=== PATIENT | male | born 1960 | race Caucasian/White ===

== ENCOUNTER 2017-09-28 06:26 | Day surgery (SDC) | payer OTHER ==
[2017-09-25 13:08] VITALS: BMI 32.1
[2017-09-28] MEDS ORDERED: ROPIVACAINE HCL 0.5% 30ML VIAL ONE (07:04)
[2017-09-28] MEDS ORDERED: MIDAZOLAM HCL 2 MG/2 ML SINGLE DOSE VIAL ONE ×2 (07:04→08:03)
[2017-09-28] MEDS ORDERED: DEXAMETHASONE SOD PHOSPHATE/PF 10 MG/ML SDV ONE (07:04)
[2017-09-28] MEDS ORDERED: ROCURONIUM BROMIDE 50 MG/5 ML VIAL ONE (07:07)
[2017-09-28] MEDS ORDERED: LIDOCAINE HCL/PF 2% SDV 5ML VIAL ONE (07:07)
[2017-09-28] MEDS ORDERED: ONDANSETRON 4 MG/2 ML VIAL ONE (07:07)
[2017-09-28] MEDS ORDERED: SUCCINYLCHOLINE CHLORIDE 200 MG/10 ML VIAL ONE (07:07)
[2017-09-28] MEDS ORDERED: PROPOFOL 20 ML ONE (07:07)
[2017-09-28] MEDS ORDERED: DEXAMETHASONE SOD PHOSPHATE 4 MG/1 ML VIAL ONE (07:07)
[2017-09-28] MEDS ORDERED: EPINEPHrine 1:1,000 1 MG/1 ML - 30ML VIAL (INJECTION) ONE (07:10)
[2017-09-28] MEDS ORDERED: ceFAZolin SODIUM 1 GM VIAL ONE (07:37)
[2017-09-28] MEDS ORDERED: oxyCODONE HCL 5 MG TABLET ONE (09:11)
[2017-09-28 10:23] VITALS: TEMP 97.6
[2017-09-28 10:27] VITALS: BP 132/73; PULSE 90
[2017-09-28] MEDS ORDERED: ONDANSETRON 4 MG/2 ML VIAL IVPUSH PRN (13:02)
[2017-09-28] MEDS ORDERED: oxyCODONE HCL 5 MG TABLET PO PRN ×2 (13:02)
[2017-09-28] MEDS ORDERED: LACTATED RINGERS SOLUTION 1,000 ML IV SCH (13:15)
--- NOTE | 2017-10-01 15:24 | PATH ---
Surgical Pathology Report Patient Name: MARIELOS SHARP [facility]. Rec. #: [id number] /Age/Gender: 1960 (Age: 57) / M Account: [id number] Location: [facility] Taken: 09/28/2017 Received: 09/28/2017 Reported: 10/01/2017 Physicians: Scotty Dugan M.D. Specimen(s) Received RIGHT SHOULDER SHAVINGS Clinical History Right shoulder internal derangement Final Diagnosis SHOULDER, RIGHT, ARTHROSCOPIC SHAVINGS: FIBROSYNOVIAL TISSUE, SCANT CARTILAGE AND SKELETAL MUSCLE. Electronically Signed Silvia Issa M.D. Gross Description Received in formalin, labeled "right shoulder shavings," is a 4.4 x 3.8 x 0.4 cm. aggregate of villalobos-yellow soft tissue fragments. A account service representative portion is submitted in one cassette. /09/28/201709/28/2017
--- NOTE | 2017-10-02 09:40 | OP ---
DATE OF OPERATION: 09/28/2017 LOCATION: [facility]. SURGEON: Dilip Sanon MD BUSINESS APPLICATIONS ANALYST: MICHEL Neil PREOPERATIVE DIAGNOSES: 1. Right shoulder adhesive capsulitis. 2. Right shoulder impingement syndrome. 3. Right shoulder acromioclavicular joint disease. 4. Right shoulder superior labral tear, anterior/posterior synovitis. POSTOPERATIVE DIAGNOSES: 1. Right shoulder adhesive capsulitis. 2. Right shoulder impingement syndrome. 3. Right shoulder acromioclavicular joint disease. 4. Right shoulder superior labral tear, anterior/posterior synovitis. PROCEDURE: 1. Right shoulder arthroscopy with lysis of adhesions. CPT code 38037. 2. Right shoulder arthroscopy with subacromial decompression. CPT code 53123. 3. Right shoulder arthroscopy with resection of distal clavicle and acromioclavicular joint. CPT code 42107. 4. Right shoulder arthroscopy with debridement. CPT code 25421. FINDINGS: 1. Glenohumeral synovitis. 2. Anterior grade 2 cartilage injury of the glenohumerus. 3. Partial biceps tear, 10%. 4. Partial rotator cuff tear, 25%. 5. Adhesions, glenohumeral joint. 6. Thickened scar tissue and adhesions, subacromial space. 7. Type 2 acromion with partial type 3 curvature, anterior acromion. 8. Inferior spurs of clavicle with acromioclavicular degenerative joint disease. PROCEDURE: Informed consent was obtained. The patient was taken to the operating room, where the upper extremity was prepped and draped in a sterile fashion. A scalene block was performed by Anesthesia. Manipulation under anesthesia was allowed for full range of motion. Using standard arthroscopic technique, a posterior incision portal was made, which allowed for introduction of a camera into the glenohumeral joint. Under direct visualization, an anterior incision and portal was made. Extensive and thickened synovitis was debrided. Fraying of the labrum was debrided and the superior labrum from anterior to posterior was identified with all loose areas debrided. Any labral tears were taken to a stable rim including identified SLAP lesions. All loose cartilage was debrided. The rotator cuff was identified and evaluated, as were the subacromial and bursal surfaces. The posterior incision portal was redirected to the subacromial space, where a lateral incision and portal was made. Excessive and thickened synovium was removed throughout the subacromial space including the anterior scar tissue, posterior bursa and lateral bursa. The type 2 acromion was converted to a flattened type 1, removing the anterior and lateral spurring. An accessory portal was made at the acromioclavicular joint, removing the inferior spur of the distal clavicle at the acromioclavicular joint allowing for a distal clavicle partial resection. Please note that 1 cm of undersurface of clavicle was removed extending into the intra articular portion and through an accessory portal. The shoulder was once again reexamined and all impingement was removed. The shoulder was drained. A single suture was placed in all portals and a sterile dressing was placed. The patient was transferred to the recovery room without complication. DILIP SANON M.D. [id number]
== END 2017-09-28 10:15 | disposition home or self-care (01) ==
LOC: FASU 06:26
PROVIDERS: ATTEND Orthopaedic Surgery
PROC: 0RBJ4ZZ Excision of Right Shoulder Joint, Percutaneous Endoscopic Approach (ICD-10-PCS; 2017-09-28)
PROC: 0RNJ4ZZ Release Right Shoulder Joint, Percutaneous Endoscopic Approach (ICD-10-PCS; 2017-09-28)
PROC: 0PB94ZZ Excision of Right Clavicle, Percutaneous Endoscopic Approach (ICD-10-PCS; principal; 2017-09-28 08:00)
DX: M75.41 Impingement syndrome of right shoulder (principal); M75.01 Adhesive capsulitis of right shoulder; M19.011 Primary osteoarthritis, right shoulder; M24.111 Other articular cartilage disorders, right shoulder; M65.811 Other synovitis and tenosynovitis, right shoulder
CPT/HCPCS: 88304-TC

== ENCOUNTER 2019-02-13 06:21 | Inpatient (IN) | payer OTHER ==
[2019-02-13] MEDS ORDERED: CELECOXIB 200 MG CAPSULE PO ONE (06:39)
[2019-02-13] MEDS ORDERED: oxyCODONE HCL 10 MG SUSTAINED ACTING TABLET PO ONE (06:39)
[2019-02-13] MEDS ORDERED: CEFAZOLIN 2 GM in DEXTROSE 5%-WATER - 50 ML IVPB ONE (06:39)
[2019-02-13] MEDS ORDERED: TRANEXAMIC ACID 1000 MG/10 ML VIAL IVPUSH ONE (06:39)
[2019-02-13] MEDS ORDERED: BUPIVICAINE 0.25%/MORPH PF/KETOROLAC - 51ML DISP.SYRINGE IA ONE ×3 (06:39→10:38)
[2019-02-13] MEDS ORDERED: PANTOPRAZOLE 40 MG TABLET (FP) PO ONE (06:40)
[2019-02-13 06:49] VITALS: BMI 34.2
[2019-02-13] MEDS ORDERED: DEXAMETHASONE SOD PHOSPHATE/PF 10 MG/ML SDV ONE (07:09)
[2019-02-13] MEDS ORDERED: MIDAZOLAM HCL 2 MG/2 ML SINGLE DOSE VIAL ONE (07:10)
[2019-02-13] MEDS ORDERED: VANCOMYCIN 1,000 MG VIAL (RESTRICTED TO ID ONLY) ONE (07:13)
[2019-02-13] MEDS ORDERED: ceFAZolin SODIUM 1 GM VIAL ONE ×2 (07:13→07:22)
[2019-02-13] MEDS ORDERED: ONDANSETRON 4 MG/2 ML VIAL ONE (07:22)
[2019-02-13] MEDS ORDERED: SODIUM CHLORIDE 0.9% P/F 10 ML VIAL IJ ONE (07:22)
[2019-02-13] MEDS ORDERED: BUPIVACAINE HCL/PF 0.5% (5MG/ML) 10 ML VIAL ONE (07:22)
[2019-02-13] MEDS ORDERED: DEXMEDETOMIDINE HCL 200 MCG/2 ML IVPB ONE (07:44)
--- NOTE | 2019-02-13 07:45 | HP ---
Admitting History and Physical - Admission Chief Complaint: left hip osteoarthritis x years History of Present Illness: 59 year old male presents in regard to their left hip. Longstanding history of left hip osteoarthritis. Patient complains of pain, limited ROM, difficulty ambulating and difficulty completing ADLs. Patient has failed conservative treatment measures including PO medications, injections, exercise programs and activity modification. At this point, patient wishes to proceed with surgical intervention, a left total hip arthroplasty - MAKOplasty. History Source: Patient - Past Medical History Gastrointestinal: Yes: GERD Musculoskeletal: Yes: Osteoarthritis - Past Surgical History Additional Past Surgical History: See written history & physical. - Smoking History Smoking history: Never smoked Have you smoked in the past 12 months: No - Alcohol/Substance Use Hx Alcohol Use: Yes (OCCASIONALLY) Home Medications - Allergies Allergies/Adverse Reactions: Allergies Allergy/AdvReac Type Severity Reaction Status Date / Time No Known Allergies Allergy Verified 01/28/19 12:45 - Home Medications Home Medications: Ambulatory Orders [place]-3 Fatty Acids/Fish Oil [Fish Oil 1,000 mg Capsule] 2 each PO DAILY Pantoprazole Sodium [Protonix] 40 mg PO DAILY 09/25/17 Red Yeast Rice 600 mg PO DAILY 09/25/17 Diclofenac Sodium [Voltaren -] 75 mg PO BID 01/28/19 Hydrocodone/Acetaminophen [Hydrocodone-Acetamin 5-325 mg] 2 tab PO ASDIR PRN Review of Systems - Review of Systems Musculoskeletal: reports: Decreased ROM (left hip), Joint Pain (left hip) Physical Examination Vital Signs: Vital Signs Temperature 98.4 F 02/13/19 06:44 Pulse Rate 82 02/13/19 06:44 Respiratory Rate 18 02/13/19 06:44 Blood Pressure 132/90 02/13/19 06:44 O2 Sat by Pulse Oximetry (%) Constitutional: Yes: Well Nourished, No Distress Eyes: Yes: Conjunctiva Clear HENT: Yes: Atraumatic, Normocephalic Neck: Yes: Supple Cardiovascular: Yes: Regular Rate and Rhythm Respiratory: Yes: Regular Gastrointestinal: Yes: Soft ...Rectal Exam: Yes: Deferred Musculoskeletal: Yes: Joint Stiffness (left hip), Other (LROM left hip) Assessment/Plan 59 year old male presents in regard to their left hip. Longstanding history of left hip osteoarthritis. Patient complains of pain, limited ROM, difficulty ambulating and difficulty completing ADLs. Patient has failed conservative treatment measures including PO medications, injections, exercise programs and activity modification. At this point, patient wishes to proceed with surgical intervention, a left total hip arthroplasty - MAKOplasty. Pros, cons, risks benefits and alternatives of a left total hip arthroplasty, MAKOplasty were discussed with the patient at length. Patient confirms their understanding and consents to proceed wituh a left total hip arthroplasty, MAKOplasty.
[2019-02-13] MEDS ORDERED: GLYCOPYRROLATE 0.2 MG/1 ML VIAL ONE (08:31)
[2019-02-13] MEDS ORDERED: ePHEDrine SULFATE 50 MG/1 ML AMPULE ONE (08:41)
[2019-02-13] MEDS ORDERED: ONDANSETRON 4 MG/2 ML VIAL IVPUSH PRN ×2 (09:37→11:11)
[2019-02-13] MEDS ORDERED: oxyCODONE HCL 5 MG TABLET PO PRN (09:38)
[2019-02-13] MEDS ORDERED: LACTATED RINGERS SOLUTION 1,000 ML IV SCH ×2 (09:45→11:15)
[2019-02-13] MEDS ORDERED: VANCOMYCIN 1,000 MG VIAL (RESTRICTED TO ID ONLY) IVPB ONE (10:25)
[2019-02-13] MEDS ORDERED: TRANEXAMIC ACID 1000 MG/10 ML VIAL IVPB ONE (10:38)
[2019-02-13] MEDS ORDERED: traMADol HCL 50 MG TABLET ONE (10:59)
[2019-02-13] MEDS ORDERED: ACETAMINOPHEN INJECTION 100 ML IVPB ONE (10:59)
[2019-02-13] MEDS ORDERED: KETOROLAC TROMETHAMINE 30 MG/1 ML VIAL ONE (10:59)
[2019-02-13] MEDS ORDERED: MAG HYDROX/AL HYDROX/SIMETH 30 ML UNIT-DOSE CUP PO PRN (11:11)
[2019-02-13] MEDS ORDERED: MAGNESIUM HYDROX 2400MG/30ML ORAL SUSPENSION 30 ML CUP PO PRN (11:11)
--- NOTE | 2019-02-13 11:11 | OP ---
Operative Note - Note: Operative Date: 02/13/19 Pre-Operative Diagnosis: Left hip OA Operation: Left RENATE SHARIF Post-Operative Diagnosis: Same as Pre-op Surgeon: Juan Luis Snell Snowboard Designer: Brooke Headley Anesthesia: Spinal Estimated Blood Loss (mls): 200
[2019-02-13] MEDS: ACETAMINOPHEN 1000 MG/100 ML VIAL (NON FORMULARY) IVPB ONE ×2 (11:30→13:27)
[2019-02-13] MEDS: KETOROLAC TROMETHAMINE 30 MG/1 ML VIAL IVPUSH SCH ×4 (11:46→23:32)
[2019-02-13] MEDS: traMADol HCL 50 MG TABLET PO SCH ×3 (11:47→23:32)
[2019-02-13] MEDS ORDERED: TRANEXAMIC ACID 1000 MG/10 ML VIAL ONE (12:08)
[2019-02-13] MEDS: oxyCODONE HCL 10 MG SUSTAINED ACTING TABLET PO SCH ×2 (13:27→22:24)
[2019-02-13] MEDS: oxyCODONE HCL 5 MG TABLET PO PRN (15:19)
--- NOTE | 2019-02-13 16:02 | SPEC ---
DATE OF OPERATION: 02/13/2019 PREOPERATIVE DIAGNOSIS: Left hip osteoarthritis. POSTOPERATIVE DIAGNOSIS: Left hip osteoarthritis. PROCEDURE: Left total hip replacement with MAKOplasty robotic navigation. ATTENDING: Penny Rios MD PAYABLE PROCESSOR: MICHEL Costa ANESTHESIA: Spinal plus sedation. ESTIMATED BLOOD LOSS: 200 mL. COMPLICATIONS: None. DISPOSITION: The patient was taken to the PACU in stable condition. IMPLANTS USED: Hernandez Accolade II size 6 femoral component, Hernandez Trident II 52-mm acetabular component with 25 and 25-mm acetabular screws, MDM bipolar head ball and liner with inner ceramic +4-mm offset head ball. INDICATIONS: This is a 59-year-old male who presented to the office complaining of severe left hip pain. He was seen and examined by Dr. Rios, diagnosed with severe left hip osteoarthritis. The patient was initially treated conservatively with injections, medications, and physical therapy but continued to have severe pain and ambulatory dysfunction. He was, therefore, indicated for a left total hip replacement. The risks, benefits, and alternatives to the procedure were explained to the patient in great detail, and he elected to proceed with the procedure. DESCRIPTION OF PROCEDURE: On the day of surgery, the patient was taken to the operating room and placed on the OR table. Spinal anesthesia was administered by the anesthesiologist. The patient was then positioned in the lateral decubitus position on the table and all bony prominences were padded. An axillary roll was placed. The operative hip was then prepped and draped in the usual sterile fashion and intravenous antibiotics were given for infection prophylaxis. A surgical time-out was then performed with the team, and the patients identity, procedure, side, availability of implants, and the administration of antibiotics were confirmed. An approximately 15-cm longitudinal incision was made through the skin centered on the greater trochanter of the hip. This dissection was carried down through the subcutaneous tissues to the deep fascia. This fascia was then incised and a Cobra was placed around the inferior femoral neck. Electrocautery was used to reflect the anterior 40% of the gluteus medius and minimus starting at the musculotendinous junction and leaving a cuff for closure. This was reflected to reveal the capsule of the hip joint. An anterior capsulectomy was performed and the femoral head and neck were visualized. Grade 4 changes were noted diffusely throughout the joint. At this point, three small stab incisions were made superior to the main incision along the iliac crest. Three self-drilling Steinmann pins were then placed and the [employer] pelvic array was attached. Reference points on the limb were then entered into the robotic device and the limb length deficiency, offset, and femoral neck resection level were then calculated by the software. The hip was then dislocated with traction and external rotation. An oscillating saw was used to make the femoral neck cut at the level previously templated, and the femoral head was removed. Attention was then turned to the acetabulum. Retractors were then placed around the acetabulum and the labrum was removed. An acetabular checkpoint pin and the [employer] software were used to register the contours of the acetabulum. The acetabulum was then reamed in a single stage to the preoperatively templated size using the [employer] robotic arm. The appropriately sized cup was then impacted and had solid fixation as well as the preset inclination and version of 40 and 20 degrees, respectively. A polyethylene liner was then placed in the cup. Attention was then turned back to the femur, which was externally rotated for improved visualization. A femoral neck elevator was used to present the femoral neck cut, a box osteotome was used to enter the femoral canal, and a canal finder was used to go down the femoral shaft. The Fernando broaches were used sequentially until the optimal scratch fit was achieved. This correlated with the preoperatively templated size. From here, several different offset head and neck configurations were tested until excellent stability and length were obtained. These measurements were quantified using the [employer] software. All trial components were then removed, the femur was copiously irrigated, and the final components were placed. After final implants were placed, a Betadine soak was performed for 3 minutes. Following this, the wound was thoroughly irrigated with normal saline via pulsatile lavage, and wound closure was begun. Leg length and stability were checked again and found to be excellent. Irrigation was performed again. Wound closure was started by repairing the abductor muscles with a no. 2 FiberWire stitch in a Krackow configuration passed through bone tunnels in the greater trochanter and tied over a bony bridge. This repair was then reinforced with a 0 V-Loc 180 barbed suture. Next, no. 1 Polysorb and 0 V-Loc 180 were used to close the fascia. The deep subcutaneous tissue was closed with no. 1 Polysorb sutures, and 2-0 Polysorb was used for the superficial subcutaneous tissue. The skin was closed using both 3-0 V-Loc 90 suture in a running subcuticular fashion and SwiftSet skin adhesive. The Fernando array and pins were removed from the iliac crest and the stab incision sites were irrigated and closed with 4-0 Polysorb sutures and SwiftSet skin adhesive. Once this was completed, a sterile dressing was applied. The patient was then awakened and taken to the PACU in stable condition. PENNY RIOS M.D. [id number]
[2019-02-13] MEDS: CEFAZOLIN 2 GM/D5W 2 GM/50 ML ML IVPB SCH (17:12)
[2019-02-13] MEDS: ACETAMINOPHEN 325 MG TABLET (FP) PO SCH ×2 (17:12→23:32)
[2019-02-13] MEDS ORDERED: DEXAMETHASONE SOD PHOSPHATE 10 MG/1 ML VIAL IVPB ONE (20:00)
[2019-02-13] MEDS: CELECOXIB 200 MG CAPSULE PO SCH (22:15)
[2019-02-13] MEDS: SENNOSIDES/DOCUSATE COMBO (SENNA PLUS) TABLET (UD) PO SCH (22:16)
[2019-02-13] MEDS: GABAPENTIN 300 MG CAPSULE (FP) PO SCH (22:25)
[2019-02-13] MEDS: ASCORBIC ACID 500 MG TABLET (FP) PO SCH (22:25)
[2019-02-14] MEDS: CEFAZOLIN 2 GM/D5W 2 GM/50 ML ML IVPB SCH (02:00)
[2019-02-14] MEDS: KETOROLAC TROMETHAMINE 30 MG/1 ML VIAL IVPUSH SCH (05:26)
[2019-02-14] MEDS: ACETAMINOPHEN 325 MG TABLET (FP) PO SCH ×3 (05:28→18:02)
[2019-02-14] MEDS: traMADol HCL 50 MG TABLET PO SCH ×3 (05:29→18:04)
[2019-02-14] MEDS: ASPIRIN 325 MG TABLET PO SCH (08:09)
[2019-02-14 08:27] LABS: HEMATOCRIT 37.2 % (35.4-49); HEMOGLOBIN 12.6 GM/dl (11.7-16.9); MCH 31.4 pg (25.7-33.7); MEAN CELL VOLUME 92.3 fl (80-96); MEAN PLT VOLUME 8.2 fl (7.5-11.1); PLATELET COUNT 172 K/MM3 (134-434); RBC 4.03 M/mm3 (4.00-5.60); RDW 12.5 % (11.9-15.9); WHITE BLOOD COUNT 8.7 K/mm3 (4.0-10.8)
[2019-02-14 08:32] LABS: CALCIUM 8.3 mg/dl (8.5-10); CREATININE 0.8 mg/dl (0.55-1.3); POTASSIUM 4.4 mmol/L (3.5-5.1)
[2019-02-14] MEDS: GABAPENTIN 300 MG CAPSULE (FP) PO SCH ×2 (09:51→22:11)
[2019-02-14] MEDS: oxyCODONE HCL 5 MG TABLET PO PRN (09:51)
[2019-02-14] MEDS: ASCORBIC ACID 500 MG TABLET (FP) PO SCH ×2 (09:51→22:11)
[2019-02-14] MEDS: MULTIVITAMINS (DAILY MVI) TABLET (FP) PO SCH (09:51)
[2019-02-14] MEDS: PANTOPRAZOLE 40 MG TABLET (FP) PO SCH (09:51)
[2019-02-14] MEDS: SENNOSIDES/DOCUSATE COMBO (SENNA PLUS) TABLET (UD) PO SCH ×2 (09:52→22:11)
[2019-02-14] MEDS: oxyCODONE HCL 10 MG SUSTAINED ACTING TABLET PO SCH ×2 (09:52→22:11)
[2019-02-14] MEDS: CELECOXIB 200 MG CAPSULE PO SCH ×2 (09:54→22:11)
--- NOTE | 2019-02-14 13:15 | DS ---
Physical Examination Vital Signs: Vital Signs Temperature 97.3 F L 02/14/19 06:00 Pulse Rate 66 02/14/19 06:00 Respiratory Rate 16 02/14/19 08:57 Blood Pressure 113/72 02/14/19 06:00 O2 Sat by Pulse Oximetry (%) 98 02/14/19 08:57 Labs: CBC, BMP 02/14/19 07:05 02/14/19 07:05 Discharge Summary Problems reviewed: Yes Reason For Visit: LEFT HIP OSTEOARTHRITIS Current Active Problems Osteoarthritis of left hip (Acute) Procedures: Principal: left RENATE SHARIF Hospital Course: Admitted for elective surgery. Procedure performed without complications. Pt received postoperative antibiotic prophylaxis and DVT ppx. Ambulated with physical therapy. Stable for discharge home with outpatient followup. Condition: Stable - Instructions Diet, Activity, Other Instructions: Dr Snell - Hip Replacement Instructions Keep the Aquacel dressing on until removed by Dr. Snell in the office - it is antibacterial and waterproof and you can shower with it on. Call the office for a follow-up appointment with Dr. Snell in 10-14 days. Take one Aspirin 325mg daily for 6 weeks to prevent blood clots in your legs. Take one Pantoprazole 40mg daily for 6 weeks to protect against heartburn and ulcers. Take Cephalexin (antibiotic) 3x/day for 10 days to help prevent skin infection. Take Celebrex 200mg twice daily for 30 days to reduce swelling and inflammation. Take a multivitamin, stool softener and extra Vitamin C supplement daily. For pain: *Mild pain (1-3/10): Take 1 Tramadol tablet every 4 hours as needed. Moderate pain (4-6/10): Take 1 Tramadol tablet and 1 Percocet tablet every 4 hours as needed. Severe pain (7-10/10): Take 1 Tramadol tablet and 2 Percocet tablets every 4 hours as needed. Activity: You can put as much weight on the operative leg as you want. For the first 6 weeks, all you need to do is walk around the house, go up/down stairs, and sit down/get up. After 6 weeks when everything is healed (and bone has grown into the implant) you will be sent for more intensive outpatient physical therapy. Always use a walker or cane for balance and to prevent falls. Expect to see swelling / bruising from the operative site all the way down to your toes. Wear the Compression stocking on the operative side during the day to minimize how much swelling there is in your foot/ankle. Don't wear the stocking at night. You don't have to wear the stocking on the other side. Disposition: VNS/HOME HEALTH CARE - Home Medications Comprehensive Discharge Medication List: Ambulatory Orders [place]-3 Fatty Acids/Fish Oil [Fish Oil 1,000 mg Capsule] 2 each PO DAILY Red Yeast Rice 600 mg PO DAILY 09/25/17 Ascorbic Acid [Vitamin C -] 500 mg PO BID tablet 02/14/19 Aspirin [ASA -] 325 mg PO DAILY@0800 tablet 02/14/19 Cephalexin Monohydrate [Keflex -] 500 mg PO TID #30 capsule 02/14/19 Diclofenac Sodium [Voltaren -] 75 mg PO BID #60 tablet. 02/14/19 Multivitamins [Multivit ([facility] Formulary)] 1 tab PO DAILY tab 02/14/19 Oxycodone HCl/Acetaminophen [Percocet 5-325 mg Tablet] 1 - 2 tab PO Q4H PRN #60 tablet MDD 10 02/14/19 Pantoprazole Sodium [Protonix] 40 mg PO DAILY #40 tablet. 02/14/19 Sennosides/Docusate Sodium [Pericolace -] 2 tablet PO BID tablet 02/14/19 traMADol HCL [Ultram -] 50 mg PO Q4H PRN #42 tablet MDD 6 02/14/19
--- NOTE | 2019-02-14 14:37 | PN ---
Progress Note (short form) - Note Progress Note: S: Pt. sitting in a chair. No c/o. No pain O: VAS: 0/10 A/p: POD#1 s/p left THR 1) Pain meds as needed
[2019-02-15] MEDS: traMADol HCL 50 MG TABLET PO SCH ×3 (00:21→13:44)
[2019-02-15] MEDS: ACETAMINOPHEN 325 MG TABLET (FP) PO SCH ×3 (00:21→13:44)
[2019-02-15 06:57] VITALS: BP 114/75; PULSE 68; TEMP 96.1
[2019-02-15 10:12] LABS: HEMATOCRIT 35.2 % (35.4-49); MCH 31.1 pg (25.7-33.7); MEAN CELL VOLUME 91.3 fl (80-96); MEAN PLT VOLUME 8.9 fl (7.5-11.1); PLATELET COUNT 146 K/MM3 (134-434); RBC 3.86 M/mm3 (4.00-5.60); RDW 14.2 % (11.9-15.9); WHITE BLOOD COUNT 7.2 K/mm3 (4.0-10.0)
[2019-02-15] MEDS: ASCORBIC ACID 500 MG TABLET (FP) PO SCH (10:26)
[2019-02-15] MEDS: oxyCODONE HCL 10 MG SUSTAINED ACTING TABLET PO SCH (10:26)
[2019-02-15] MEDS: SENNOSIDES/DOCUSATE COMBO (SENNA PLUS) TABLET (UD) PO SCH (10:26)
[2019-02-15] MEDS: GABAPENTIN 300 MG CAPSULE (FP) PO SCH (10:27)
[2019-02-15] MEDS: CELECOXIB 200 MG CAPSULE PO SCH (10:27)
[2019-02-15] MEDS: PANTOPRAZOLE 40 MG TABLET (FP) PO SCH (10:27)
[2019-02-15] MEDS: ASPIRIN 325 MG TABLET PO SCH (10:27)
[2019-02-15] MEDS: MULTIVITAMINS (DAILY MVI) TABLET (FP) PO SCH (10:27)
== END 2019-02-15 11:50 | disposition home health service (06) | DRG 301 ==
LOC: FM/S 06:21
PROVIDERS: ADMIT Student in an Organized Health Care Education/Training Program; ATTEND Student in an Organized Health Care Education/Training Program
PROC: 8E0W0CZ Robotic Assisted Procedure of Trunk Region, Open Approach (ICD-10-PCS; 2019-02-13)
PROC: 0SRB03A Replacement of Left Hip Joint with Ceramic Synthetic Substitute, Uncemented, Open Approach (ICD-10-PCS; principal; 2019-02-13 09:08)
DX: M16.12 Unilateral primary osteoarthritis, left hip (principal); K21.9 Gastro-esophageal reflux disease without esophagitis
CPT/HCPCS: 36415; 73502-TC-LT-FY; 80048; 85027; 94760; 97116-GP; 97163-GP; J0131; J1100